=== PATIENT | male | born 1975 | race Two or more races ===

== ENCOUNTER 2024-04-16 19:50 | Inpatient (IN) | payer MEDICAID, OTHER ==
[~2024-04-16] VITALS: Ht 175.3 cm; Wt 75.0 kg
--- NOTE | 2024-04-16 20:15 | ED.PDOC ---
HPI Comments HPI: PMHx: PSHx: Initial Vital Signs: Temp: 98.6F HR: 97 RR: 16 BP: 123/75 SpO2: 97% HPI: Poor Historian. 48-year-old male presents to the emergency department for evaluation of midsternal chest tightness nonradiating while he was walking today. Patient is homeless. No other associated symptoms. Patient admits to use of tobacco. Denies any drugs. Past Medcial History: Tobacco abuse Past Surgical History: Denies any Positive family history of coronary artery disease REVIEW OF SYSTEMS: CONSTITUTIONAL: Denies acute: fever, diaphoresis, chills, generalized weakness. HEAD: Denies acute: headache, photophobia Eyes: Denies acute: Double vision, vision loss, eye pain, eye discharge. EARS: Denies acute: tinnitus, hearing loss, ear discharge, ear pain, THROAT: Denies acute: sore throat, swelling, difficulty swallowing , pain with swal lowing, change in voice. NECK: Denies acute: neck pain, neck swelling, stiff neck. HEART: Denies acute : palpitations, LUNGS: Denies acute: SOB, wheezing, cough, hemoptysis ABDOMEN: Denies acute: abdominal pain, Nausea, Vomiting, diarrhea, melena , hematemesis, hematochezia SKIN: Denies acute: rash, redness, lesions, itchiness. EXTREMITIES: Denies acute: calf pain, numbness, tingling, weakness, denies pain in extremity. Denies acute: Low back pain. Neuro: Denies acute: focal neurological deficit, motor or sensory focal neurological deficit, tremors, seizure like activity, confusion, dizziness, change in mental status, loss of bowel or bladder function, cauda equina like symptoms. : Denies acute: dysuria, hematuria, flank pain, increase in urinary frequency. PSYCH: Denies acute: hallucination, suicidal ideation, homicidal ideation. PHYSICAL EXAM: General: no acute distress, awake and alert. Head: normocephalic, atraumatic. Neck: supple, trachea is midline, no swelling. Throat: Normal phonation. Eyes:, no erythema, no purulent discharge, no proptosis, no icterus. Heart: regular rate, regular rhythm, no significant murmur appreciated. Lungs: no apparent respiratory distress, Able to speak in full sentences. No wheezing, no rhonchi, no crackles. No stridors Clear to auscultation bilaterally. Abdomen: non tender to palpation, non distended, soft, no guarding, no rebound, + bowel sounds. Neuro: Awake, Alert, oriented to name, self, situation, follows commands GCS=15. Speech is normal. Skin: no petechia, no purpura, no cyanosis, non-pale, not jaundice. Lower extremities: --no - Pitting edema no deformity, no focal swelling, no calf TTP. Makes eye contact. moves all four extremities. Face: no apparent facial droop. Ambulating in the ED independently. Chief Complaint: Chest Pain Time Seen by MD: 19:56 Reviewed Notes: Nurses Notes, Allergies Allergies: Coded Allergies: NO KNOWN ALLERGIES (Unverified , 04/16/24) Information Source: Patient Mode of Arrival: Ambulatory Past Medical History PAST MEDICAL HISTORY: Denies Surgical History: Denies all surgeries Family History Family History: Reviewed,noncontributory to illness Social History Smoker: Non-Smoker Alcohol: Denies ETOH Use Drugs: Denies Drug Use Lives In: Home Was a procedure done? Was a procedure done?: No X-Ray, Labs, Meds, VS Vital Signs Date Time Temp Pulse Resp B/P (MAP) Pulse Ox O2 Delivery O2 Flow Rate FiO2 04/16/24 21:04 82 04/16/24 19:56 92 04/16/24 19:55 98.6 97 16 123/75 (91) 97 Lab Test 04/16/24 21:12 04/16/24 20:19 Range/Units Troponin I High Sensitivity 3 L 3 L </=54 ng/L Triglycerides Level 92 < 150 mg/dL Cholesterol Level 164 < 200 mg/dL LDL Cholesterol 89 < 100 mg/dL HDL Cholesterol 68 H 40-59 mg/dL White Blood Count 8.4 4.4-10.8 10^3/uL Red Blood Count 5.01 4.5-5.90 10^6/uL Hemoglobin 15.2 13.5-17.5 g/dL Hematocrit 44.9 41.0-53.0 % Mean Corpuscular Volume 89.8 80.0-100.0 fL Mean Corpuscular Hemoglobin 30.4 28.0-32.0 pg Mean Corpuscular Hemoglobin Concent 33.9 32.0-36.0 g/dL Red Cell Distribution Width 12.7 11.8-14.3 % Platelet Count 325 140-450 10^3/uL Mean Platelet Volume 6.7 L 6.9-10.8 fL Neutrophils (%) (Auto) 68.7 37.0-80.0 % Lymphocytes (%) (Auto) 20.9 10.0-50.0 % Monocytes (%) (Auto) 6.7 0.0-12.0 % Eosinophils (%) (Auto) 2.9 0.0-7.0 % Basophils (%) (Auto) 0.8 0.0-2.0 % Neutrophils # (Auto) 5.8 1.6-8.6 10 ^3/uL Lymphocytes # (Auto) 1.8 0.4-5.4 10 ^3/uL Monocytes # (Auto) 0.6 0-1.3 10 ^3/uL Eosinophils # (Auto) 0.2 0-0.8 10 ^3/uL Basophils # (Auto) 0.1 0-0.2 10 ^3/uL Nucleated Red Blood Cells 0.2 % Prothrombin Time 10.7 9.3-11.8 sec Prothrombin Time INR 1.01 0.9-1.15 Activated Partial Thromboplast Time 29.2 24.5-34.5 SEC Sodium Level 141 136-145 mmol/L Potassium Level 4.2 3.5-5.1 mmol/L Chloride Level 108 H 98-107 mmol/L Carbon Dioxide Level 28 20-31 mmol/L Anion Gap 5 5-15 Blood Urea Nitrogen 13 9-23 mg/dL Creatinine 1.26 0.700-1.30 mg/dL Glomerular Filtration Rate Calc 69 >90 mL/min BUN/Creatinine Ratio 10.3 10.0-20.0 Serum Glucose 123 H 74-106 mg/dL Hemoglobin A1c 5.8 H <5.7 % A1C Calcium Level 9.7 8.7-10.4 mg/dL Magnesium Level 2.2 1.6-2.6 mg/dL Total Bilirubin 0.3 0.2-1.0 mg/dL Aspartate Amino Transferase (AST) 47 H 13-40 U/L Alanine Aminotransferase (ALT) 64 H 7-40 U/L Alkaline Phosphatase 81 46-116 U/L B-Type Natriuretic Peptide 6.92 0-100 pg/mL Total Protein 6.8 5.7-8.2 g/dL Albumin 4.4 3.2-4.8 g/dL [address] [address] Ph: [phone] DIAGNOSTIC IMAGING Diagnostic Imaging Report : [id number] Signed PATIENT: ANGELA JOY ACCT: [id number] UNIT: [id number] : 1975 LOC: ER ROOM / BED: / AGE / SEX: 48 / M ADM STATUS: REG ER SERVICE 01 ORDERING PHYSICIAN: DIANA VIEIRA MD PROCEDURE(s): CXRP - CHEST PORTABLE REASON: CP ORDER NUMBER(s): [id number], ACCESSION NUMBER(s): [id number] CHEST RADIOGRAPH Indication: CP Technique: Single frontal view of the chest was obtained Comparison: None FINDINGS: Lines and Tubes: None Lungs: No focal consolidation. Pleura: No effusion. No pneumothorax. Cardiomediastinal contours: Unremarkable Bones: No acute osseous abnormality. IMPRESSION: No acute cardiopulmonary disease. ATED BY: WENDY JEFFERS DO DICTATED DATE/TIME: 04/16/242018 SIGNED BY: WENDY JEFFERS DO SIGNED DATE/TIME: 04/16/242018 CC: Time of 1ST Reevaluation: 20:26 Reevaluation 1ST: Unchanged Patient Education/Counseling: Diagnosis, Treatment Family Education/Counseling: No Family Present Departure 1 Departure Time of Disposition: 20:32 Impression: Primary Impression: Chest pain Additional Impression: Homelessness Disposition: 09 ADMITTED INPATIENT Condition: Guarded Discharged With: Self Critical Care Note Critical Care Time?: No Heart Score Heart Score: Heart Score Response (Comments) Value History Slightly Suspicious 0 EKG Normal 0 Age 45-64 1 Risk Factors 1 or 2 risk factors 1 Troponin Normal limit 0 Total 2 I personally scribed for MAKEDA PLUMMER DO ([email or web address]) on 04/16/24 at 20:14. Electronically submitted by Cruz Schwartz ([email or web address]). I personally scribed for MAKEDA PLUMMER DO ([email or web address]) on 04/17/24 at 01:50. Electronically submitted by Sourav Fernández ([email or web address]). MAKEDA PLUMMER DO Apr 16, 2024 20:14
--- NOTE | 2024-04-16 20:22 | DVH ---
CHEST RADIOGRAPH Indication: CP Technique: Single frontal view of the chest was obtained Comparison: None FINDINGS: Lines and Tubes: None Lungs: No focal consolidation. Pleura: No effusion. No pneumothorax. Cardiomediastinal contours: Unremarkable Bones: No acute osseous abnormality. IMPRESSION: No acute cardiopulmonary disease.
[2024-04-16 20:32] LABS: Basophils # (auto) 0.1 10 ^3/uL (0-0.2); Basophils % (auto) 0.8 % (0.0-2.0); Eosinophils # (auto) 0.2 10 ^3/uL (0-0.8); Eosinophils % (auto) 2.9 % (0.0-7.0); Hematocrit 44.9 % (41.0-53.0); Hemoglobin 15.2 g/dL (13.5-17.5); Lymphocytes # (auto) 1.8 10 ^3/uL (0.4-5.4); Lymphocytes % (auto) 20.9 % (10.0-50.0); Mean Corpuscular Hemoglobin 30.4 pg (28.0-32.0); Mean Corpuscular Hgb Conc. 33.9 g/dL (32.0-36.0); Mean Corpuscular Volume 89.8 fL (80.0-100.0); Monocytes # (auto) 0.6 10 ^3/uL (0-1.3); Monocytes % (auto) 6.7 % (0.0-12.0); Neutrophils # (auto) 5.8 10 ^3/uL (1.6-8.6); Neutrophils % (auto) 68.7 % (37.0-80.0); Nucleated Red Blood Cells % 0.2 %; Platelet Count (auto) 325 10^3/uL (140-450); Red Blood Cells 5.01 10^6/uL (4.5-5.90); Red Cell Distribution Width 12.7 % (11.8-14.3); White Blood Cell 8.4 10^3/uL (4.4-10.8)
[2024-04-16 20:47] LABS: Albumin 4.4 g/dL (3.2-4.8); Alkaline Phosphatase 81 U/L (46-116); Anion Gap 5 (5-15); BUN/Creatinine Ratio 10.3 (10.0-20.0); Blood Urea Nitrogen 13 mg/dL (9-23); Calcium 9.7 mg/dL (8.7-10.4); Carbon Dioxide 28 mmol/L (20-31); Magnesium 2.2 mg/dL (1.6-2.6); Potassium 4.2 mmol/L (3.5-5.1); Sodium 141 mmol/L (136-145)
[2024-04-16 20:48] LABS: Bilirubin, Total 0.3 mg/dL (0.2-1.0); INR 1.01 (0.9-1.15); Partial Thromboplastin Time 29.2 SEC (24.5-34.5); Prothrombin Time 10.7 sec (9.3-11.8); Total Protein 6.8 g/dL (5.7-8.2)
[2024-04-16 20:52] LABS: Alanine Aminotransferase 64 U/L (7-40); Aspartate Aminotransferase 47 U/L (13-40); Chloride 108 mmol/L (98-107); Glucose 123 mg/dL (74-106)
--- NOTE | 2024-04-16 23:10 | ECG ---
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
--- NOTE | 2024-04-16 23:10 | ECG ---
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
[2024-04-16] MEDS ORDERED: ACETAMINOPHEN 325 MG TAB PO PRN (23:45)
--- NOTE | 2024-04-17 00:08 | DVHHPRES ---
History of Present Illness Resident Creating Document: ZAK WISEMAN History of Present Illness This is a 48-year-old male with no past medical history of relevance per patient and stated that does not take any medications at home. The patient presented to the ED complaining of acute chest pain in the left side of the chest. The patient states that he was taking a walk when he suddenly started developing acute chest pain located retrosternally without specific pattern of radiation. Patient denied abdominal pain, palpitations, shortness of breath, fever/chills or any other associated symptoms. On my examination the patient denied active chest pain at this time. EKG was reviewed showing sinus rhythm with no ST segment elevation or depression at this time. BNP was normal range at 6.92 and CBC and CMP were grossly unremarkable. Initial chest x-ray was grossly unremarkable without evidence of consolidations poor cardiopulmonary abnormal ities. We will order an echocardiogram and admit the patient for further assessment and management. Past Medical History None Past Surgical History: None Family History: CAD Smoke: 1 pack per day ALCOHOL: none Drugs: None Lives: with Family Domestic Violence: Neg Review of Systems Constitutional: No: Fever, Chills, Sweats, Weakness, Malaise, Other Eyes: No: Pain, Vision change, Conjunctivae inflammation, Eyelid inflammation, Other, Redness ENT: No: Ear pain, Ear discharge, Nose pain, Nose discharge, Nose congestion, Mouth pain, Mouth swelling, Throat pain, Throat swelling, Other Respiratory: No: Cough, Dry, Shortness of breath, SOB with excertion, Wheezing, Hemoptysis, Pleuritic Pain, Sputum, Wheezing, Other Cardiovascular: Chest Pain; No: Palpitations, Orthopnea, Paroxysmal Noc. Dyspnea, Edema, Lt Headedness, Other Gastrointestinal: No: Nausea, Vomiting, Abdominal Pain, Diarrhea, Constipation, Melena, Hematochezia, Other Genitourinary: No Dysuria, No Frequency, No Incontinence, No Hematuria, No Retention, No Other Musculoskeletal: No: other, neck pain, shoulder pain, arm pain, back pain, hand pain, leg pain, foot pain Skin: No: Rash, Lesions, Jaundice, Bruising, Other Neurological: No: Weakness, Numbness, Incoordination, Change in speech, Confusion, Seizures, Other Allergies: Coded Allergies: NO KNOWN ALLERGIES (Unverified , 04/16/24) Exam Vital Signs Vital Signs Date Time Temp Pulse Resp B/P (MAP) Pulse Ox O2 Delivery O2 Flow Rate FiO2 04/16/24 21:04 82 04/16/24 19:55 98.6 16 123/75 (91) 97 General Appearance: Alert, Oriented X3, Cooperative, No acute distress HEENT: Atraumatic, PERRLA, EOMI, Mucous membr. moist/pink Respiratory: Clear to auscultation, Normal air movement Cardiovascular: Regular rate, Normal S1, Normal S2, No murmurs Abdominal: Normal bowel sounds, Soft, No tenderness, No hepatospenomegaly Extremities: No clubbing, No cyanosis, No edema, Normal pulses, No tenderness /swelling Skin: No rashes, No breakdown, No significant lesion Neuro: Normal gait, Normal speech, Strength at 5/5 X4 ext, Normal tone, Sensation intact, Cranial nerves 3-12 NL, Reflexes 2+ Psych/Mental Status: Mental status NL, Mood NL Labs/Xrays Labs Test 04/16/24 21:12 04/16/24 20:19 Range/Units Troponin I High Sensitivity 3 L </=54 ng/L White Blood Count 8.4 4.4-10.8 10^3/uL Red Blood Count 5.01 4.5-5.90 10^6/uL Hemoglobin 15.2 13.5-17.5 g/dL Hematocrit 44.9 41.0-53.0 % Mean Corpuscular Volume 89.8 80.0-100.0 fL Mean Corpuscular Hemoglobin 30.4 28.0-32.0 pg Mean Corpuscular Hemoglobin Concent 33.9 32.0-36.0 g/dL Red Cell Distribution Width 12.7 11.8-14.3 % Platelet Count 325 140-450 10^3/uL Mean Platelet Volume 6.7 L 6.9-10.8 fL Neutrophils (%) (Auto) 68.7 37.0-80.0 % Lymphocytes (%) (Auto) 20.9 10.0-50.0 % Monocytes (%) (Auto) 6.7 0.0-12.0 % Eosinophils (%) (Auto) 2.9 0.0-7.0 % Basophils (%) (Auto) 0.8 0.0-2.0 % Neutrophils # (Auto) 5.8 1.6-8.6 10 ^3/uL Lymphocytes # (Auto) 1.8 0.4-5.4 10 ^3/uL Monocytes # (Auto) 0.6 0-1.3 10 ^3/uL Eosinophils # (Auto) 0.2 0-0.8 10 ^3/uL Basophils # (Auto) 0.1 0-0.2 10 ^3/uL Nucleated Red Blood Cells 0.2 % Prothrombin Time 10.7 9.3-11.8 sec Prothrombin Time INR 1.01 0.9-1.15 Activated Partial Thromboplast Time 29.2 24.5-34.5 SEC Sodium Level 141 136-145 mmol/L Potassium Level 4.2 3.5-5.1 mmol/L Chloride Level 108 H 98-107 mmol/L Carbon Dioxide Level 28 20-31 mmol/L Anion Gap 5 5-15 Blood Urea Nitrogen 13 9-23 mg/dL Creatinine 1.26 0.700-1.30 mg/dL Glomerular Filtration Rate Calc 69 >90 mL/min BUN/Creatinine Ratio 10.3 10.0-20.0 Serum Glucose 123 H 74-106 mg/dL Calcium Level 9.7 8.7-10.4 mg/dL Magnesium Level 2.2 1.6-2.6 mg/dL Total Bilirubin 0.3 0.2-1.0 mg/dL Aspartate Amino Transferase (AST) 47 H 13-40 U/L Alanine Aminotransferase (ALT) 64 H 7-40 U/L Alkaline Phosphatase 81 46-116 U/L B-Type Natriuretic Peptide 6.92 0-100 pg/mL Total Protein 6.8 5.7-8.2 g/dL Albumin 4.4 3.2-4.8 g/dL Assessment/Plan Assessment/Plan Assessment/Plan Acute chest pain, likely non cardiac. R/O ACS -initial EKG showed sinus rhythm with no ST segment elevation or depression -initial chest x-ray was grossly unremarkable without evidence of focal consolidations or cardiopulmonary abnormalities -troponins came back negative -BNP was normal range at 6.92 -Tobacco abuser 1pack per day -ordered COVID-19 Laila antigen test and influenza A and B test -Ordered echocardiogram -Awaiting for UDS ANNIE prerenal likely due to vasomotor nephropathy -BUN13 and creatinine 1.26 -IV fluids at 60 cc/hour -Monitor kidney function Acute transaminitis -AST 47, ALT 64 -monitor liver enzymes Tobacco abuser -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 Morrell Plan discussed with: Patient My Orders Orders - ZAK WISEMAN Procedure Category Date Status Time Admit ADMIT 04/16/24 Transmitted 23:38 Code Status CODE 04/16/24 Transmitted 23:38 Vital Signs SHMUEL 04/16/24 In Process 23:38 Review Orders With SHMUEL 04/16/24 In Process Adm.Md 23:38 Regular Diet DIET 04/17/24 Transmitted Breakfast Sodium Chloride 0.9% PHA 04/16/24 Logged 23:45 Acetaminophen Tablet PHA 04/16/24 Logged (Tylenol Tablet) 23:45 Notify Md Of Changes SHMUEL 04/16/24 In Process From Base 23:38 Advance Directive SHMUEL 04/16/24 In Process 23:38 Echo 2d Mode Cardiac US 04/16/24 Logged DOP 23:38 Urinalysis LAB 04/16/24 Logged 23:38 Lipid Panel LAB 04/16/24 Logged 23:38 Patient Condition ORDERS 04/16/24 Transmitted 23:38 Allergies SHMUEL 04/16/24 In Process 23:38 Drug Screen LAB 04/16/24 Logged 23:38 Ambulate Every 4hours SHMUEL 04/16/24 In Process 23:38 Hemoglobin A1c LAB 04/16/24 Logged 23:38 Date of Service: Apr 16, 2024 Billing Provider: HALINA MORRELL MD Common Visit Codes: [id number] INP/OBS CARE (HIGH) ZAK WISEMAN RESIDENT Apr 17, 2024 00:08 HALINA MORRELL MD Apr 17, 2024 17:50
[2024-04-17 00:10] LABS: Triglycerides 92 mg/dL (< 150)
[2024-04-17 00:11] LABS: LDL Cholesterol 89 mg/dL (< 100)
[2024-04-17 00:12] LABS: Cholesterol 164 mg/dL (< 200)
[2024-04-17] MEDS ORDERED: ONDANSETRON HCL 4 MG/2 ML VIAL IV PRN (00:30)
[2024-04-17 00:32] LABS: HDL Cholesterol 68 mg/dL (40-59)
[2024-04-17 02:48] VITALS: RESP 20; O2SAT 98
[2024-04-17] MEDS: SODIUM CHLORIDE 0.9% 1,000 ML IV SCH (04:08)
[2024-04-17 04:49] VITALS: BP 134/82; PULSE 73; RESP 18; TEMP 97.9; O2SAT 97
[2024-04-17 04:50] VITALS: PULSE 73; RESP 18; O2SAT 97
[2024-04-17 05:10] LABS: COVID19 ANTIGEN SOFIA FIA NEGATIVE (NEGATIVE); Rapid Influenza A Negative (Negative); Rapid Influenza B Negative (Negative)
[2024-04-17] MEDS: ASPirin 81 mg TAB PO SCH (09:51)
[2024-04-17] MEDS: PANTOPRAZOLE 40 MG TAB PO SCH (09:51)
[2024-04-17 12:31] VITALS: BP 106/65; PULSE 81; RESP 16; TEMP 98.2; O2SAT 96
[2024-04-17] MEDS ORDERED: PANT40TA2 PO (14:56)
[2024-04-17 16:54] VITALS: TEMP 36.8
[2024-04-17 17:12] LABS: Urine Bacteria None Seen /hpf (None Seen)
[2024-04-17 18:07] LABS: Amphetamine Screen, Urine Pos (NEGATIVE)
[2024-04-17 18:08] LABS: Barbiturate Scree,Urine Neg (NEGATIVE); Benzodiazephine Screen, Urine Neg (NEGATIVE); Cannabinoid Screen, Urine Neg (NEGATIVE); Cocaine Screen, Urine Neg (NEGATIVE); Opiate Scree,Urine Neg (NEGATIVE); Phencyclidine Screen, Urine Neg (NEGATIVE)
[2024-04-17 18:11] LABS: Urine Blood Negative /uL (Negative); Urine Clarity Turbid (Clear); Urine Color Yellow (Yellow); Urine Mucus FEW (None Seen); Urine Protein, UAD Negative (Negative); Urine Specific Gravity 1.027 (1.001-1.035); Urine Squamous Epithelial Cell None Seen /hpf (<5); Urine Urobilinogen 3 mg/dL (Negative); Urine WBC 1 /hpf (0 - 3)
--- NOTE | 2024-04-17 18:33 | DVHDSRES ---
Discharge Summary Date of Admission Resident Creating Document: ZAK WISEMAN RESIDENT Apr 16, 2024 at 23:48 Date of Discharge: Apr 17, 2024 Admitting Diagnosis Acute chest pain R/O ACS Wounds: Labs/Diagnostic Data: Laboratory Results Test 04/17/24 16:40 04/17/24 04:10 04/16/24 21:12 04/16/24 20:19 Urine Color Yellow (Yellow) Urine Clarity Turbid (Clear) Urine pH 7.0 (5.0-9.0) Urine Specific [place] 1.027 (1.001-1.035) Urine Protein Negative (Negative) Urine Ketones Negative (Negative) Urine Blood Negative /uL (Negative) Urine Nitrite Negative (Negative) Urine Bilirubin Negative (Negative) Urine Urobilinogen 3 mg/dL (Negative) Urine Leukocyte Esterase Negative /uL (Negative) Urine RBC <1 /hpf (0 - 3) Urine WBC 1 /hpf (0 - 3) Urine Squamous Epithelial Cells None seen /hpf (<5) Urine Bacteria None seen /hpf (None Seen) Urine Mucus Few (None Seen) Urine Glucose Normal mg/dL (Normal) Urine Opiates Screen Neg (NEGATIVE) Urine Fentanyl Screen Neg (NEGATIVE) Urine Barbiturates Screen Neg (NEGATIVE) Urine Phencyclidine Screen Neg (NEGATIVE) Urine Amphetamines Screen Pos (NEGATIVE) Urine Benzodiazepines Screen Neg (NEGATIVE) Urine Cocaine Screen Neg (NEGATIVE) Urine Cannabinoids Screen Neg (NEGATIVE) Influenza Type A Antigen Negative (Negative) Influenza Type B Antigen Negative (Negative) SARS-CoV-2 Antigen (Rapid) Negative (NEGATIVE) Troponin I High Sensitivity 3 ng/L (</=54) Triglycerides Level 92 mg/dL (< 150) Cholesterol Level 164 mg/dL (< 200) LDL Cholesterol 89 mg/dL (< 100) HDL Cholesterol 68 mg/dL (40-59) White Blood Count 8.4 10^3/uL (4.4-10.8) Red Blood Count 5.01 10^6/uL (4.5-5.90) Hemoglobin 15.2 g/dL (13.5-17.5) Hematocrit 44.9 % (41.0-53.0) Mean Corpuscular Volume 89.8 fL (80.0-100.0) Mean Corpuscular Hemoglobin 30.4 pg (28.0-32.0) Mean Corpuscular Hemoglobin Concent 33.9 g/dL (32.0-36.0) Red Cell Distribution Width 12.7 % (11.8-14.3) Platelet Count 325 10^3/uL (140-450) Mean Platelet Volume 6.7 fL (6.9-10.8) Neutrophils (%) (Auto) 68.7 % (37.0-80.0) Lymphocytes (%) (Auto) 20.9 % (10.0-50.0) Monocytes (%) (Auto) 6.7 % (0.0-12.0) Eosinophils (%) (Auto) 2.9 % (0.0-7.0) Basophils (%) (Auto) 0.8 % (0.0-2.0) Neutrophils # (Auto) 5.8 10 ^3/uL (1.6-8.6) Lymphocytes # (Auto) 1.8 10 ^3/uL (0.4-5.4) Monocytes # (Auto) 0.6 10 ^3/uL (0-1.3) Eosinophils # (Auto) 0.2 10 ^3/uL (0-0.8) Basophils # (Auto) 0.1 10 ^3/uL (0-0.2) Nucleated Red Blood Cells 0.2 % Prothrombin Time 10.7 sec (9.3-11.8) Prothrombin Time INR 1.01 (0.9-1.15) Activated Partial Thromboplast Time 29.2 SEC (24.5-34.5) Sodium Level 141 mmol/L (136-145) Potassium Level 4.2 mmol/L (3.5-5.1) Chloride Level 108 mmol/L (98-107) Carbon Dioxide Level 28 mmol/L (20-31) Anion Gap 5 (5-15) Blood Urea Nitrogen 13 mg/dL (9-23) Creatinine 1.26 mg/dL (0.700-1.30) Glomerular Filtration Rate Calc 69 mL/min (>90) BUN/Creatinine Ratio 10.3 (10.0-20.0) Serum Glucose 123 mg/dL (74-106) Hemoglobin A1c 5.8 % A1C (<5.7) Calcium Level 9.7 mg/dL (8.7-10.4) Magnesium Level 2.2 mg/dL (1.6-2.6) Total Bilirubin 0.3 mg/dL (0.2-1.0) Aspartate Amino Transferase (AST) 47 U/L (13-40) Alanine Aminotransferase (ALT) 64 U/L (7-40) Alkaline Phosphatase 81 U/L (46-116) B-Type Natriuretic Peptide 6.92 pg/mL (0-100) Total Protein 6.8 g/dL (5.7-8.2) Albumin 4.4 g/dL (3.2-4.8) Other Laboratory Tests 04/16/24 20:19 Brief Hx & Hospital Course: This is a 48-year-old male with no relevant past medical history and no medications taken at home. The patient presented to the ED complaining of acute chest pain on the left side of the chest. He states that he was taking a walk when he suddenly developed acute retrosternal chest pain without a specific pattern of radiation. The patient denies abdominal pain, palpitations, shortness of breath, fever, chills, or any other associated symptoms. On examination, the patient denied active chest pain at this time. An EKG showed sinus rhythm with no ST segment elevation or depression. BNP was within the normal range at 6.92, and CBC and CMP were grossly unremarkable. The initial chest X-ray was grossly unremarkable without evidence of consolidations or cardiopulmonary abnormalities. We will order an echocardiogram and admit the patient for further assessment and management. Hospital course: EKG showed normal sinus rhythm with no acute ST or T-wave changes. Chest X-ray was unremarkable. Patient was admitted for the possible ACS, and the patient was given aspirin, and Protonix. Patient has history of GERD. Patient is current smoker, and consulted for the smoking cessation. On 04/17, the patient was feeling better since admission and had no active complaint. Patient was clinically and hemodynamically stable. Discharge plan discussed with the patient and the patient was discharged. Discharge plan: Follow up with the PCP within 1 week of the discharge. Follow up with the Cardiology on outpatient basis. Protonix 40 mg daily for 1 month Operations or Procedures [address] [address] Ph: [phone] DIAGNOSTIC IMAGING Diagnostic Imaging Report : [id number] Signed PATIENT: ANGELA JOY ACCT: [id number] UNIT: [id number] : 1975 LOC: ER ROOM / BED: / AGE / SEX: 48 / M ADM STATUS: REG ER SERVICE 01 ORDERING PHYSICIAN: DIANA VIEIRA MD PROCEDURE(s): CXRP - CHEST PORTABLE REASON: CP ORDER NUMBER(s): [id number], ACCESSION NUMBER(s): [id number] CHEST RADIOGRAPH Indication: CP Technique: Single frontal view of the chest was obtained Comparison: None FINDINGS: Lines and Tubes: None Lungs: No focal consolidation. Pleura: No effusion. No pneumothorax. Cardiomediastinal contours: Unremarkable Bones: No acute osseous abnormality. IMPRESSION: No acute cardiopulmonary disease. ATED BY: WENDY JEFFERS DO DICTATED DATE/TIME: 04/16/242018 SIGNED BY: WENDY JEFFERS DO SIGNED DATE/TIME: 04/16/242018 CC: Condition at Discharge: Good Final Diagnosis/Problems List Acute chest pain, likely due to costochondritis Ruled out ACS Good Current smoker ANNIE, likely VMN Transaminitis Homelessness Prediabetes Hyperchloremia Dyslipidemia Amphetamine use disorder Discharge Disposition: Home Discharge Instruct/Medications Diet: Cardiac 2g Na,low cholest Activity: No Restrictions, As Tolerated Follow Up/Referral: Follow up with the PCP within 1 week after discharge. Follow up with the DC clinic within 1 week after discharge Medications: Tablet Protonix 40 mg daily for 30 days Discharge Statement: "Patient was advised to return to the ER or call 911 if any headaches, dizziness, shortness of breath, chest pain, abdominal pain, bleeding, fevers, or worsening of medical condition. Patient was counseled about treatment plan, medications, possible side effects, patientverbalized understanding. All questions were answered to the best of my ability. This discharge took greater then 30 minutes in planning, reviewing documentation, counseling the patient, and discussing with other team members." ASSESSMENT ASSESSMENT Assessment GERD Date of Service: Apr 17, 2024 Billing Provider: OTILIA PEGUERO MD Common Visit Codes: [id number]/OBS DISCH DAY >30min LAURIEMARYALAURIE ARAUJOChikis RESDIENT Apr 17, 2024 18:33 OTILIA PEGUERO MD Apr 18, 2024 09:51
== END 2024-04-17 19:00 | disposition home or self-care (01) | DRG 203 ==
LOC: ER 19:50 → OVERFLOW 23:48 → UNDOADMIN 04-17 00:01 → OVERFLOW 04-17 00:01
PROVIDERS: ADMIT Student in an Organized Health Care Education/Training Program; ATTEND Student in an Organized Health Care Education/Training Program
DX: M94.0 Chondrocostal junction syndrome [Tietze] (principal); E87.8 Other disorders of electrolyte and fluid balance, not elsewhere classified; E78.5 Hyperlipidemia, unspecified; R74.01 Elevation of levels of liver transaminase levels; Z20.822 Contact with and (suspected) exposure to COVID-19; Z59.00 Homelessness unspecified; F17.200 Nicotine dependence, unspecified, uncomplicated; F15.90 Other stimulant use, unspecified, uncomplicated
CPT/HCPCS: 36415; 71045; 80053; 80061; 80307; 81001; 83036; 83735; 83880; 84484; 85025; 85610; 85730; 87426; 87804; 93005; G0378